=== PATIENT | female | born 1955 | race Caucasian/White ===

== ENCOUNTER 2025-04-11 14:57 | Inpatient (IN) | payer MEDICARE, SELFPAY ==
[2025-04-09 13:21] VITALS: BP 110/71
[2025-04-09 13:46] LABS: % Basophils 0.4 % (0-2); % Eosinophils 0.3 % (0-6); % Immature Granulocytes 0.4 % (0-0.5); % Lymphocytes 14.2 % (20.5-51.1); % Monocytes 9.9 % (1.7-9.3); % Neutrophils 74.8 % (42.2-75.2); Absolute Basophils 0.1 10^3/uL (0-0.2); Absolute Immature Granulocytes 0.1 10^3/uL (0-0.05); Absolute Lymphocytes 1.8 10^3/uL (1.2-3.4); Absolute Monocytes 1.2 10^3/uL (0.1-0.6); Absolute Neutrophils 9.4 10^3/uL (1.4-6.5); Hematocrit 36.6 % (37.0-47.0); Hemoglobin 12.8 g/dL (12.0-16.0); Mean Corpuscular Volume 85.7 fL (81.0-99.0); Mean Platelet Volume 10.2 fL (7.4-10.4); Nucleated Red Blood Cells % 0 %; Platelet Count 270 10^3/uL (130-400); Red Blood Cell Count 4.27 10^6/uL (4.20-5.40); Red Cell Dist. Width 13.2 % (11.5-14.5); White Blood Cell Count 12.6 10^3/uL (4.8-10.8)
[2025-04-09 14:03] LABS: ALT (SGPT) 28 U/L (0-35); AST (SGOT) 32 U/L (14-36); Albumin 3.9 g/dl (3.5-5.0); Alkaline Phosphatase 104 U/L (38-126); Blood Urea Nitrogen 29 mg/dl (7-17); Calcium 10.1 mg/dl (8.4-10.2); Carbon Dioxide 25 mmol/L (22-30); Chloride 105 mmol/L (98-107); Glucose 145 mg/dl (70-99); Potassium 3.8 mmol/L (3.5-5.1); Sodium 140 mmol/L (135-145); Total Bilirubin 0.5 mg/dl (0.2-1.3); Total Protein 6.5 g/dl (6.3-8.2); eGFR > 60.00
[2025-04-09 16:12] VITALS: BP 110/68; BMI 23.0
--- NOTE | 2025-04-09 17:01 | ED.GENMED ---
History of Present Illness
General
Chief Complaint: Gait Dysfunction
Source: patient and family
Time Seen by Provider: 04/09/25 16:41
History of Present Illness
History of Present Illness:
This patient is a 70-year-old female presents emergency department accompanied by her spouse. They state that they just moved here from [place] within the last week. They have a family friend that is a physician at [facility] that referred him to this
emergency department with suggestion for testing including an MRI if available. Patient states that she has always had a feeling of being unbalanced and describes a history of vestibular insufficiency. She was told to attend PT for this which she
did but that overall there is no specific cure for this. She does not take medications for this and states that the only medication she takes besides supplements are vaginal estrogen suppositories. Both her and her state that since Wednesday
she has had increasing imbalance and in fact is stumbling and this is gotten significantly worse in the last 48 hours or so. states that she typically shuffles her feet and is somewhat imbalanced but now she is incredibly unbalanced. This
morning for example at around 8 AM he found her on the floor and she noted that she had 'slid out of bed'. She crawled to the bathroom, sat on the toilet but needed assistance to get off the toilet. She has had some cognitive issues at baseline
but this is also noted to be increased as of Wednesday. states that her symptoms seem to be worse in the evening. There is no history of double vision or blurry vision, slurred speech, chest pain, dyspnea, headache, dizziness, abdominal pain,
back pain, neck pain, nausea, vomiting. There is a slight decrease in her appetite.
Past History
Past History
ED Past Medical History: Other (Vestibular insufficiency)
ED Past Surgical History: Orthopedic
Social History
Tobacco: Non-smoker
Alcohol: None
Drug: None
Personal:
Living: with family
Phy Exam
Physical Exam
Physical Exam:
GENERAL: Alert , in no apparent distress
EYE: pupils equal and reactive, EOMI, no nystagmus, no photophobia
NECK: Supple, no significant adenopathy.
ENT: o/p clr, mmm.
CARDIAC: Regular rate and rhythm .
LUNGS: Clear breath sounds bilaterally, no acute respiratory distress, no wheezes/rales/rhonchi
ABDOMEN: Soft, without focal tenderness, no r/g, no cvat
NEUROLOGICAL: Alert and oriented, right lower extremity weakness 4 out of 5, 2+ patellar reflexes bilaterally, sensation intact throughout, iddsqs-ca-yful normal 2 through 12. Patient noted to be slightly dragging her right lower extremity with
walk. Negative Romberg
SKIN: Warm and dry, skin intact.
MUSCULOSKELETAL: No edema, well perfused.
PSYCH: Normal and appropriate interaction.
Course
Orders/Labs/Results
Orders:
Orders
04/09/25 13:33
Complete Blood Count/With Diff Urgent
Comprehensive Metabolic Panel Urgent
04/09/25 Dinner
Regular
At Your Request: Limited Participation
Does patient need a safe tray?: No
04/09/25 16:59
CT Head W/o Iv Contrast Urgent
Comment:
Reason For Exam: gait dysfunction
04/09/25 17:19
Urinalysis Reflex To Culture Urgent
Date Specimen was Collected: 04/09/25
Time Specimen was Collected: 17:18
Urine Microscopic Reflex Cult Urgent
Urine Culture Urgent
BERNA Source: U
Specimen Description:
Date Specimen was Collected: 04/09/25
Time Specimen was Collected: 17:18
04/09/25 20:25
CefTRIAXone [Rocephin] 1,000 mg IV NOW STA
04/09/25 21:16
Admit/Transfer Patient As Directed
Co-Sign Provider:
Level of Care: Observation services
Assign to:: Medical/Surgical
Physician / Group: Addis
Diagnosis: UTI
Reason for Hospitalization: complicated UTI
PRN Pain Medication Management As Directed
May give lesser potent ordered pain med per pt: Yes
preference::
Protocol:: Medication orders for pain may be administered in a
manner that supports deferring to patient preference
when the pt is:
- Requesting an ordered lesser potent pain medication.
Least to most potent pain medications are defined
as: acetaminophen < NSAID < tramadol < opioids
(morphine, oxycodone, hydromorphone).
- Requesting a lesser dose of the same medication IF
ORDERED.
- Requesting a less intrusive route of administration
if both routes are prescribed by the provider (PO <
IV).
04/09/25 21:17
Code Status As Directed
Resuscitation Status: Full Code
04/09/25 22:00
Flush (0.9% Sodium Chloride) [Flush (Nss)] See Dose Instructions IV PER PROTOCOL
04/09/25 22:57
Acetaminophen [Tylenol] 650 mg PO Q4HPRN PRN
Bisacodyl [Dulcolax] 10 mg RECTAL [id number] PRN
Docusate W/Senna [Senokot-S] 1 tablet PO BIDPRN PRN
Ondansetron Injectable [Zofran] 4 mg IV Q6HPRN PRN
Polyethylene Glycol Powder [Miralax] 17 grams PO DAILYPRN PRN
bromfenac 1 drop RIGHT EYE DAILYPRN PRN
04/09/25 22:57
WOUND/OSTOMY CONSULT Routine
Reason for Consult: sebaceous cyst drainage, dressing recommendations
Wound Culture [Wound/Abscess/Other Culture] Routine
BERNA Source: Shoulder
Specimen Description: Left
Activity As Directed
Activity Level: With Assistance
Orthostatic Vital Signs As Directed
Orthostatic VS Frequency: Daily
Vital Signs As Directed
Frequency: Per unit guidelines
Pulse Ox/spot Check [RESP] Routine
Quantity: 1
Pt Eval And Treat Routine
Activity Level: With Assistance
DX Deep Vein Thrombosis Video Routine
04/09/25 23:22
Pt Screening Request from [facility] Routine
04/10/25 06:12
Basic Metabolic Panel IN AM
Complete Blood Count/No Diff IN AM
Free T4 Routine
Comment: ADD
Magnesium IN AM
TSH IN AM
Vitamin B12 IN AM
04/10/25 08:41
Warm Compress [Heat Application] As Directed
Apply warm compress to (location):: L shoulder
Compress Frequency:: Intermittent q4h
Duration of Application: No longer than 20 minutes
Comment: while patient awake.
04/10/25 09:51
OT Consult [Ot Eval And Treat] Routine
Treatment: Recommended by PT/ Await MD signature
04/10/25 09:53
Add On- LAB Routine
Tests Added?: free T4
04/10/25 10:19
SURGICAL CONSULT Routine
Consulting Provider: Krishna Foster
Was physician already notified: Yes
04/10/25 10:51
Lidocaine 1%/Epinephrine [Xylocaine 1% with Epinephrine] 20 ml INFIL ONCE ONE
04/10/25 11:30
Wound Care As Directed
Location of Wound: LEFT postrior shoulder
Treatment of Wound: Pack with WTD gauze and cover with dry gauze and tape daily
04/10/25 11:33
Case Management Consult ONCE
Case Management Consult: VN/Home Care
04/10/25 18:00
Enoxaparin Sodium [Lovenox] 40 mg SC QPM
04/10/25 20:00
CefTRIAXone [Rocephin] 1,000 mg IV Q24H
Sterile Water [Sterile Water For Injection] 10 ml IV Q24H
04/11/25 09:06
Case Management Consult ONCE
Case Management Consult: VN/Home Care
Abnormal Lab Results
04/09/25 04/09/25 04/10/25
13:33 17:19 06:12
WBC 12.6 H 10^3/uL 11.2 H 10^3/uL
(4.8-10.8) (4.8-10.8)
RBC 3.56 L 10^6/uL
(4.20-5.40)
Hgb 10.8 L g/dL
(12.0-16.0)
Hct 36.6 L % 30.8 L %
(37.0-47.0) (37.0-47.0)
Abs Immat Gran (auto) 0.1 H 10^3/uL
(0-0.05)
Absolute Neuts (auto) 9.4 H 10^3/uL
(1.4-6.5)
Absolute Monos (auto) 1.2 H 10^3/uL
(0.1-0.6)
Lymphocytes % 14.2 L %
(20.5-51.1)
Monocytes % 9.9 H %
(1.7-9.3)
Chloride 110 H mmol/L
(98-107)
BUN 29 H mg/dl 24 H mg/dl
(7-17) (7-17)
Glucose 145 H mg/dl 121 H mg/dl
(70-99) (70-99)
Vitamin B12 > 1000 H pg/ml
(239-931)
TSH 0.09 L uIU/ml
(0.47-4.68)
Ur Occult Blood Reflex 3+ A
(Negative)
Urine Nitrite (Reflex) Positive A
(Negative)
Leukocyte Esterase Rfl 3+ A
(Negative)
Urine RBC 7-10 A /HPF
(0-2)
Urine WBC (Reflex) 11-15 A /HPF
(0-5)
Urine Bacteria (Reflex) Many A
(Negative)
Urine Albumin (Reflex) 2+ A
(Neg - Trace)
04/10/25 06:12
04/10/25 06:12
Vital Signs
Initial and Last Documented VS:
Initial Vital Signs
Temp Pulse Resp BP Pulse Ox
98.2 F 89 16 110/71 98
04/09/25 13:21 04/09/25 13:21 04/09/25 13:21 04/09/25 13:21 04/09/25 13:21
Last Documented Vital Signs
Temp Pulse Resp BP Pulse Ox
97.4 F 72 18 113/67 96
04/12/25 07:30 04/12/25 07:30 04/12/25 07:30 04/12/25 07:30 04/12/25 07:30
Update Note
Update Note:
Patient presents to the Emergency Department with _gait insufficiency
Number and Complexity of Problems Addressed at the Encounter
� Chronic conditions affecting care:
� Acute Exacerbation and/or Progression of Chronic Illness:
� Differential Diagnosis includes: But not limited to vestibular infarct, NPH, central vertigo, peripheral vertigo, etc. etc.
Amount and/or Complexity of Data to be Reviewed and Analyzed
� I performed an independent evaluation of and my interpretation is:
EKG:
CT:
Xrays:
Laboratory Studies:mild leukocytosis, u/a suggestive of uti
Other:
� Review of other/old records reveals: Has been presented a MRI report from March 2024 that shows mild white matter changes that are nonspecific close most likely rec present small vessel ischemic disease no evidence of acute
ischemic injury. The use volume loss disproportionate ventriculomegaly could reflect more pronounced central volume loss or NPH medical setting.
� Clinical information was obtained by an independent historian: at bedside
� Prescriptions/Medications Considered but not given:
� Further testing considered but not performed:
Risk of Complications and/or Morbidity or Mortality of Patient Management
� Social determinants of health affecting care:
� Discussion with other providers (PCP, Hospitalists, Consultants, etc):
� Escalation of care including admission/observation vs risk of discharge considered: 821pm Pt having increasing difficulty with gait as noted by and RN naya. reports this is c/w last few days when sxs worse
later in day. Of note, pt having episodes of incontinence and urgency, not specifically dysuria. No flank pain/fever. Ct report still pending, no bleed noted by me, however overall strong suspection for NPH given her sxs and CT. Recommend
admission, iv abx, neuro c/s in am, t/c LP for further diagnostic w/u in AM. All d/w family and pt. Although amoxil listed as allergy, she states that she has since had amoxil (dental) without rxn and therefore it has been removed with her primary
records as a true allergy.
ED Attending Note
-
Portions of this chart may have been created with voice recognition software.� Occasional wrong word or��sound alike� substitutions may have occurred due to the inherent limitations of voice recognition software.
Discharge Plan
Departure
Patient Disposition: Admit
Date of Disposition: 04/09/25
Time of Disposition: 20:25
Admit to: Telemetry
Presentation/result/management discussed w/ accepting MD/DO: Hospitalist
Condition: Fair
Discharge Problem:
Acute UTI, Ambulatory dysfunction
Interventions
Interventions:
*Risk Screen - Suicide Last Done: 04/09/25 23:23
*General Assessment Last Done: 04/09/25 16:13
*Neglect/Abuse Screening Last Done: 04/09/25 13:21
*ED COVID-19 Vaccine History Last Done: 04/09/25 23:23
*Nursing Disposition Last Done: 04/09/25 22:52
ED- Neurological Assessment Last Done: 04/09/25 16:15
ED-Musculoskeletal Assessment Last Done: 04/09/25 16:17
Discharge Date and Time
Discharge Date/Time: 04/09/25 22:54
[2025-04-09 18:19] LABS: Urine Albumin 2+ (Neg - Trace); Urine Bilirubin Negative (Negative); Urine Glucose Negative (Negative); Urine Ketone Negative (Negative); Urine Leukocyte 3+ (Negative); Urine Nitrite Positive (Negative); Urine Occult Blood 3+ (Negative); Urine Urobilinogen Negative (Neg - 1+)
[2025-04-09 18:21] LABS: Urine Color Yellow
[2025-04-09 18:22] LABS: Urine Character Slightly Cloudy (Clear)
[2025-04-09 18:32] LABS: Urine Squamous Cell 0-2 /LPF (Few)
[2025-04-09 18:33] LABS: Urine Bacteria Many (Negative)
[2025-04-09 20:26] VITALS: BP 118/64
--- NOTE | 2025-04-09 20:39 | HPS.HSE ---
Family Physician
-
Family Physician: NOT KNOW UNKNOWN - PT DOES
Chief Complaint
-
Stumbling
History of Present Illness
This is a 70-year-old female with past medical history of chronic vestibular insufficiency and baseline balance issues who presents to the emergency department with complaint of worsening balance over the last few days.
Patient recently moved to [place] from [place]. She was referred to the emergency department for possible MRI testing by a physician friend. In the past she had been told to attend PT for vestibular insufficiency and feeling of being unbalanced.
She notes that there is no specific care for this. She does not take any medications. Patient reported that she has had gait difficulties for years. She also has intermittent memory loss and confusion. She has had a history of incontinence and
has been evaluated by urologist in the past. She has had suggestion of pelvic floor dysfunction as well. She denies tremors although spouse stated that she had an episode of tremor this morning. She denies any stiffness. She denies any recent
rash. She denies orthostatic dizziness. She denies any numbness or tingling. She denies any focal weakness. There has been no double vision, blurry vision, slurred speech, facial droop, numbness or tingling or weakness in her upper or lower
extremities. She denies having any shortness of breath, cough fevers chills or chest pain. She denies any nausea or vomiting. There is been no melena or hematochezia.
She denies any prior history of CVA. She denies any prior history of heart disease or stroke arrhythmias.
She denies tremors at baseline. She denies any stiffness. Spouse reported that today she did appear to have tremors just standing up. She denies any lightheadedness or orthostatic symptoms.
Patient denies history of urinary tract infection.
Since Wednesday she is has increased stumbling. She typically shuffles but now she is incredibly imbalanced. She slid out of bed and was found on the floor this morning. She crawled to the bathroom sat on the toilet but needed assistance to get off
the toilet. Known cognitive issues at baseline but worsened since Wednesday.
In the emergency department the patient was afebrile. Blood pressure was 110/60 with a pulse of 77 and she was satting 98% on room air.
UA was markedly positive.
CT of the head was negative.
White count of 12.6. Hemoglobin and platelet counts were normal. Electrolytes were all normal. BUN/creatinine were stable. Glucose was normal.
Medical History
Past Medical History
Past Medical History: Reports Other
Additional Past Medical History:
Vestibular insufficiency
Lower urinary tract symptoms
Past Surgical History: Reports None
Social History
Tobacco: Non-smoker
Alcohol: None
Drug: None
Personal:
Living: With Family
Employment: Retired
Family History
Family History: Not pertinent
Allergies / Home Medications
Allergies reflects when Allergies were last updated in [employer].
Home Medications with original date entered in [employer]
Allergy/Medication List:
Allergies
Allergy/AdvReac Type Severity Reaction Status Date / Time
amoxicillin Allergy Unknown Verified 04/09/25 13:26
No home medications
Review of Systems
-
Constitutional: Reports No Symptoms
EENT: Reports No Symptoms
Respiratory: Reports No Symptoms
Cardiac: Reports No Symptoms
Abdomen/GI: Reports No Symptoms
: Reports No Symptoms
Musculoskeletal: Reports No Symptoms
Skin: Reports No Symptoms
Neurological: Reports See HPI, Dizzy and Weakness; Denies Headache or Numbness
Endocrine: Reports No Symptoms
Hematologic/Lymphatic: Reports No Symptoms
Psych: Reports No Symptoms
Physical Exam
Vital Signs
Vital Signs
Temp Pulse Resp BP Pulse Ox
98.2 F 77 18 110/68 95
04/09/25 13:21 04/09/25 16:12 04/09/25 16:12 04/09/25 16:12 04/09/25 16:12
Physical Exam
General: Well Developed, Well Nourished and No Apparent Distress
HEENT: NormoCephalic, Moist mucous membranes and Atraumatic
Respiratory: Clear
Cardiac: S1/S2 and Regular Rhythm; No Murmur or Rub
GI: Soft, Non Tender, Non Distended and Normal Bowel Sounds; No Organomegaly
Rectal: Deferred by Provider
Musculoskeletal: No Clubbing, No Cyanosis and No Edema
Skin: No Rash
Neuro: Nonfocal/grossly intact
Laboratory Results
-
04/09/25 13:33
04/09/25 13:33
Laboratory Results
Total Bilirubin 0.5 mg/dl (0.2-1.3) 04/09/25 13:33
AST 32 U/L (14-36) 04/09/25 13:33
ALT 28 U/L (0-35) 04/09/25 13:33
Alkaline Phosphatase 104 U/L (38-126) 04/09/25 13:33
Data Reviewed
-
CT Scan: Report Reviewed by me
MRI: Report Reviewed by me
Lab Data: Labs Reviewed by me
Old Records: Reviewed
Impression/Plan
-
IMPRESSION:
70-year-old female with history of incontinence, normally loss and confusion, gait difficulty who presents to the emergency department with marked worsening of her symptoms over the last 3 days. She reports of weakness, increased confusion and
worsening gait. Found to have a urinary tract infection in the ED. Denies flank pain fevers or chills. Denies any history of urinary tract infections. Denies history of kidney stones.
Has been no recent falls. CT of the head is negative.
Given history of gait difficulties she did have an MRI a year ago that showed nonspecific mild white matter changes representing small vessel ischemic disease. There was also diffuse parenchymal loss with disproportionate ventriculomegaly which
could reflect a more pronounced central volume loss or normal pressure hydrocephalus.
Denies any tremors. Denies any stiffness.
PLAN:
Urinary tract infection - Worsening confusion, weakness and positive u/a without dysuria. No signs of sepsis
- admit to med/surg
- urine cultures sent
- will check blood cx if febrile
- IV ceftriaxone
Gait difficulty - Underlying shufflying gait with prior mri concerning for out of proportion ventriculomegally
- possible NPH, neuro consult
- check folate/b12/tsh
- treat uti
- PT eval
- hold off on repeat imaging pending neuro
Sebaceous cyst - left posterior shoulder cyst. Has intermittent drainage in the past. Now draining.
- send cultures
- ostomy consult
DVT PPX - lovenox sq
code status - Full Code
[2025-04-09] MEDS: ROCEPHIN 1000 MG IV (20:54)
[2025-04-09 21:00] VITALS: BP 101/64
[2025-04-09 22:55] VITALS: BP 102/59; BP 114/62; PULSE 70; PULSE 73; BMI 23.0
--- NOTE | 2025-04-10 06:30 | PTCARENOTE ---
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 Pt placed on bed alarm for safety.Plan of care continued.Call mcgowan in reach.
[2025-04-10 06:53] LABS: Hematocrit 30.8 % (37.0-47.0); Hemoglobin 10.8 g/dL (12.0-16.0); Mean Corp Hgb Conc. 35.1 g/dL (33.0-37.0); Mean Corpuscular Hgb 30.3 pg (27.0-31.0); Mean Corpuscular Volume 86.5 fL (81.0-99.0); Platelet Count 248 10^3/uL (130-400); Red Blood Cell Count 3.56 10^6/uL (4.20-5.40); Red Cell Dist. Width 13.2 % (11.5-14.5); White Blood Cell Count 11.2 10^3/uL (4.8-10.8)
[2025-04-10 07:27] LABS: Blood Urea Nitrogen 24 mg/dl (7-17); Calcium 9.4 mg/dl (8.4-10.2); Carbon Dioxide 27 mmol/L (22-30); Chloride 110 mmol/L (98-107); Estimated Creatinine Clearance 76 ml/min; Glucose 121 mg/dl (70-99); Potassium 3.7 mmol/L (3.5-5.1); Sodium 142 mmol/L (135-145); eGFR > 60.00
[2025-04-10 07:30] VITALS: BP 116/68; BP 116/73; BP 98/54; PULSE 60; PULSE 83; PULSE 89
[2025-04-10 07:59] LABS: TSH 0.09 uIU/ml (0.47-4.68)
[2025-04-10 08:18] LABS: Vitamin B12 > 1000 pg/ml (239-931)
--- NOTE | 2025-04-10 08:44 | WOUNDNOTE ---
[facility] RN note: Patient admitted with UTI. Patient lives with her .
See H&P for complete history.
PMH: vestibular insufficiency, gait dysfunction, incontinent, CVA.
Wound Location and type/assessment: Patient admitted with: L shoulder cyst (suspect sebaceous cyst). She stated it has been coming and going for many years and that she has seen a real estate management specialist for it before. Cyst raised with blanched skin in
center and mild red on outer part of cyst. Cyst tender and non fluctuant. No drainage.
Appetite: good.
Pressure redistribution devices in place: [employer] Accumax. Patient can move self in bed and she stood during sacral skin assessment. Patient has a cane with her.
Plan: Warm compress applied to L shoulder x 15 minutes. Protective gauze pad changed. Air chair cushion given. Instructed patient pressure injury prevention measures.
Updated Dr. Louis who approved warm compresses. Defer to hospitalist if general surgeon evaluation indicated. Discussed with RN Scooter.
Updated care plan and will follow peripherally as needed.
--- NOTE | 2025-04-10 10:20 | W.PN.HOSP.TC ---
Today's Communication/Plan
-
Continue antibiotics
PT/OT
General Surgery consult
Assessment / Plan
Assessment / Plan
Gen-AAOx3, NAD
HEENT-NC, AT, anicteric, clear oral mm
Neck-supple
CV-reg, no M, +S1/S2
Lungs-clear B/L
Abd-soft, NT, ND
Ext-no edema
Musculoskeletal-no cyanosis, clubbing
Skin-warm and dry
Neuro-grossly non-focal
Psych-calm, cooperative
Gait dysfunction -chronic. Symptoms started a year ago. MRI a year ago done in [place] was suggestive of possible NPH. CT of the head done last night did not show ventriculomegaly. Did see a neurologist in [place] but apparently did not get further
evaluation according to family.
I spoke with neurology service, they recommend outpatient evaluation.
She states that she feels better today. Unclear if UTI is playing a role in her gait dysfunction. PT/OT consulted.
UTI -symptoms of urgency started a few days ago. Urine culture pending. Continue empiric antibiotics.
Left shoulder sebaceous cyst -General Surgery consulted for drainage.
Full code
Anticipated Discharge: Within 24 hours
Subjective/Interval History
-
Date of Service: April 10, 2025
Patient seen and examined. States her strength is better today compared to yesterday.
Objective Data
-
Labs:
Laboratory Results
04/10/25
06:12
WBC 11.2 H
Hgb 10.8 L
Hct 30.8 L
Plt Count 248
Sodium 142
Potassium 3.7
Chloride 110 H
Carbon Dioxide 27
BUN 24 H
Creatinine 0.6
Glucose 121 H
Calcium 9.4
Vital Signs:
Vital Signs
Temp Pulse Resp BP Pulse Ox
97.3 F 60 18 98/54 97
04/10/25 07:30 04/10/25 07:30 04/10/25 07:30 04/10/25 07:30 04/10/25 07:30
Review of Systems
-
History Source: Patient
All other systems: Reviewed and negative
[2025-04-10 10:42] LABS: Free T4 1.66 ng/dl (0.78-2.19)
--- NOTE | 2025-04-10 10:52 | CON.GS ---
Consultation
-
Date/Time Consultation Requested: 04/10/2025
Date/Time Consultation Performed: 04/10/2025
Medical History
-
Chief Complaint: LEFT postrior shoulder soft tissue mass
History of Present Illness:
Patient is a 70 yo F with no pertinent PMH who was admitted to the hospital due to gait instability and concern for a UTI.During the course of her hospitalization she was found to have a LEFT posterior shoulder soft tissue mass. Ms. Gilman states
that this has been present for years. She has intermittent episodes of increased swelling and discomfort ultimately leading to spontaneous drainage and improvement in her symptoms. Currently she states that she is having more discomfort and
swelling. No fevers or chills. No active drainage. She denies any prior drainage procedures or antibiotics. No personal or family history of skin or soft tissue lesions. Of note, she is currently on ceftriaxone for management of the UTI.
Past Medical History
Past Medical History: Other
Past Surgical History: None
Social History
Tobacco: Non-Smoker
Alcohol: None
Drug: None
Personal:
Living: With Family
Employment: Retired
Family History
Family History: Reviewed & Not Pertinent
Allergies / Home Medications
Allergy/AdvReac Type Severity Reaction Status Date / Time
amoxicillin Allergy Unknown Verified 04/09/25 13:26
�Medication �Instructions �Recorded �Confirmed �Type
Fc Cidal 1 cap PO DAILY 04/09/25 04/09/25 History
Lactobac no.2-Bifidobac no.1-S. 1 cap PO DAILY 04/09/25 04/09/25 History
thermo 112.5 billion cell capsule
(Visbiome)
Lidocaine/Baclofen/Nifedipine 1 applic topical DAILYPRN PRN 04/09/25 04/09/25 History
irght knee
Mushroom Complete 1 cap PO DAILY 04/09/25 04/09/25 History
acetylcarnitine 500 mg capsule 500 mg PO DAILY 04/09/25 04/09/25 History
ascorbic acid (vitamin C) 500 mg 1,000 mg PO DAILY 04/09/25 04/09/25 History
tablet
berberine chloride 500 mg capsule 500 mg PO DAILY 04/09/25 04/09/25 History
biotin 10,000 mcg chewable tablet 10,000 mcg PO DAILY 04/09/25 04/09/25 History
(Hair, Skin and Nails (biotin))
bromfenac 0.07 % eye drops 1 drp RIGHT EYE DAILYPRN PRN 04/09/25 04/09/25 History
ocular mirgraines
calcium 166.75 mg-vit D3 166.75 1 tab PO DAILY 04/09/25 04/09/25 History
unit-vit C-vit K2-minerals capsule
(Bone Essentials)
digestive enzymes 1 cap PO AC 04/09/25 04/09/25 History
flaxseed oil 1,000 mg capsule 1,000 mg PO DAILY 04/09/25 04/09/25 History
guaifenesin 400 mg tablet 800 mg PO HSPRN PRN cough 04/09/25 04/09/25 History
magnesium chelate, malate 125 mg PO HS 04/09/25 04/09/25 History
magnesium hydroxide 400 mg/5 mL 2,400 mg PO DAILYPRN PRN 04/09/25 04/09/25 History
oral suspension (Felix Milk of constipation
Magnesia)
naltrexone 4.5 mg capsule 4.5 mg PO HS 04/09/25 04/09/25 History
omega-3 acid ethyl esters 1 gram 2 g PO BID 04/09/25 04/09/25 History
capsule
turmeric 400 mg capsule 400 mg PO DAILY 04/09/25 04/09/25 History
vitamin A 3,000 mcg (10,000 unit) 3,000 mcg PO DAILY 04/09/25 04/09/25 History
capsule
vitamin B complex 1 tab PO DAILY 04/09/25 04/09/25 History
vitamin E 268 mg (400 unit) capsule 268 mg PO DAILY 04/09/25 04/09/25 History
Review of Systems
-
A 10 point review of systems was completed, and was negative except as per HPI.
Physical Exam
Vital Signs
Temp Pulse Resp BP Pulse Ox
97.3 F 60 18 98/54 97
04/10/25 07:30 04/10/25 07:30 04/10/25 07:30 04/10/25 07:30 04/10/25 07:30
04/09/25 04/10/25 04/11/25
06:59 06:59 06:59
Actual Weight 62.766 kg
Body Mass Index (BMI) 23.0
Lab Results
04/10/25 06:12
04/10/25 06:12
WBC 11.2 10^3/uL (4.8-10.8) H 04/10/25 06:12
Hgb 10.8 g/dL (12.0-16.0) L 04/10/25 06:12
Hct 30.8 % (37.0-47.0) L 04/10/25 06:12
Plt Count 248 10^3/uL (130-400) 04/10/25 06:12
Abs Immat Gran (auto) 0.1 10^3/uL (0-0.05) H 04/09/25 13:33
Neutrophils % 74.8 % (42.2-75.2) 04/09/25 13:33
Physical Exam
General: Well Developed, Well Nourished and No Apparent Distress
Respiratory: Non Labored Respirations
Musculoskeletal: Other ( LEFT posterior shoulder with 3 cm area of soft tissue swelling, soft, mild blanching erythema, palpable fluctuance, mildly mobile, no active drainage, minimal tenderness)
Skin: Warm and Dry
Neuro: Nonfocal/Grossly Intact
Data Reviewed
-
Labs: Labs Reviewed by me
Assessment / Plan
-
Patient is a 70 yo F found to have a chronic LEFT posterior shoulder soft tissue mass/abscess during the course of her hospitalization for vestibular and balance issues
Given the chronicity of this lesion, this is likely an infected sebaceous cyst. Differential also includes a primary abscess. The natural history and pathophysiology of this sebaceous cyst was reviewed. Options for management reviewed. Plan for
incision and drainage of a LEFT posterior shoulder abscess. The procedure itself, as well as the risks, benefits, and alternatives was discussed. Specifically, we discussed the risks of bleeding, persistent infection, injury to surrounding
structures, and recurrence. We discussed that if a sebaceous cyst there is a chance of recurrence until the capsule is completely excised. Given the size of the lesion and concern for possible infection no plans for excision at this time. Patient
agrees to proceed with procedure. All questions answered.
-- I&D of LEFT posterior shoulder abscess (see separate note)
-- Local wound care: OK to remove packing tomorrow (04/11), cover with dry gauze as needed for drainage
-- Continue with abx for UTI, no further needs from a GS perspective
-- Please call with any questions or concerns
-- Patient instructed to call the office if recurrence of her cyst
--- NOTE | 2025-04-10 11:33 | W.PN.SURGUPD ---
Surgical Update
Surgical Update
Incision and Drainage of LEFT Posterior Shoulder Abscess
Area was prepped using Betadine. Local anesthetic in the form of 1% Lidocaine (8 cc) was used as a field block. Linear incision made using a #15 blade. Evacuation of approximately 30 cc purulence and sebaceous material. Cavity probed and
superficially debrided with gauze. Wound cleansed with saline. Elipse of skin created to promote continued drainage. Substantially decompressed area. Wound packed with dry gauze and covered with gauze and tape. Patient tolerated procedure well.
Wound care orders placed.
[2025-04-10 15:05] VITALS: BP 108/60; PULSE 62; O2SAT 97
[2025-04-10 15:19] VITALS: BP 108/50
[2025-04-10 15:27] VITALS: BP 108/60; PULSE 62; O2SAT 97
--- NOTE | 2025-04-10 16:42 | CM ---
Alert awake oriented patient who lives with her Julio who lives in one story home with 1 step to enter.She is independent in driving and in all activities of daily living.Offered VN she declined.She uses a cane and CPAP.SHARIFA explained and copy
given . Pt did not sogn SHARIFA letter.
Never had VN/SNF
Pharmacy [facility] recent moved here
PCP recently moved here
PLAN Home no needs
[2025-04-10] MEDS: STERILE WATER FOR INJECTION 10 ML IV (20:58)
[2025-04-10] MEDS: ROCEPHIN 1000 MG IV (20:58)
[2025-04-10] MEDS: FLUSH (NSS) 1 FLUSH IV (21:02)
[2025-04-10 23:45] VITALS: BP 108/61
[2025-04-11 07:57] VITALS: BP 103/66; BP 107/69; BP 96/56; PULSE 59; PULSE 69; PULSE 72
--- NOTE | 2025-04-11 09:05 | W.PN.HOSP.TC ---
Today's Communication/Plan
-
Follow-up urine culture
Assessment / Plan
Assessment / Plan
Gen-AAOx3, NAD
HEENT-NC, AT, anicteric, clear oral mm
Neck-supple
CV-reg, no M, +S1/S2
Lungs-clear B/L
Abd-soft, NT, ND
Ext-no edema
Musculoskeletal-no cyanosis, clubbing
Skin-warm and dry
Neuro-grossly non-focal
Psych-calm, cooperative
Gait dysfunction -chronic. Symptoms started a year ago. MRI a year ago done in [place] was suggestive of possible NPH. CT of the head done last night did not show ventriculomegaly. Did see a neurologist in [place] but apparently did not get further
evaluation according to family.
I spoke with neurology service, they recommend outpatient evaluation.
Weakness markedly improved with antibiotics, suspect UTI contributing factor to her weakness.
UTI -symptoms of urgency started a few days ago. Urine culture pending. Continue empiric antibiotics.
Left shoulder sebaceous cyst/abscess -General Surgery drained the abscess. Packing in place. Set up visiting nurse to assist with wound care on discharge.
Low TSH -Free T4 normal. Suspect sick euthyroid syndrome. Can recheck as an outpatient with PCP.
Normocytic anemia -possible hemodilution from IV fluid administration. Follow-up as an outpatient.
Full code
Dispo - anticipate discharge home with VNA and PT. Patient not interested in SNF. Follow-up as an outpatient with PCP and neurology.
Anticipated Discharge: Within 24 hours
Subjective/Interval History
-
Date of Service: April 11, 2025
Patient seen and examined. She states she feels 100% stronger today. No complaints.
Objective Data
-
Vital Signs:
Vital Signs
Temp Pulse Resp BP Pulse Ox
97.6 F 59 14 96/56 97
04/11/25 07:57 04/11/25 07:57 04/11/25 07:57 04/11/25 07:57 04/11/25 07:57
I&O
04/10/25 04/11/25 04/12/25
06:59 06:59 06:59
Intake Total 1200 / 1200
Balance 1200 / 1200
Review of Systems
-
History Source: Patient
All other systems: Reviewed and negative
--- NOTE | 2025-04-11 11:56 | WOUNDNOTE ---
[facility] RN note: Patient s/p bedside I+D L shoulder cyst yesterday by surgeon. Changed packing using 1/4 inch gauze packing strip moistened with saline. Instructed patient's wound care and hand hygiene with wound care. Wound supplies given.
Patient to follow up with her primary care physician when discharged. Instructed patient signs and symptoms of wound infection to report to physician. Will sign off. Nursing to continue daily wound care during hospital stay.
[2025-04-11 15:13] VITALS: BP 119/63
--- NOTE | 2025-04-11 15:19 | VNURNOTE ---
Home Health Liaison met with patient at bedside to discuss [facility] nurse/therapy, visits, schedule and homebound status. Spouse Julio was on speaker phone. Patient is agreeable and understands that visits at home will be 2-3 x per week to assess and
teach medical management.
Patient is aware that [facility] will contact them for start of care in 1-2 days after discharge from .
[facility] referral completed in [facility].
[2025-04-11 15:28] VITALS: PULSE 62; O2SAT 98
--- NOTE | 2025-04-11 16:44 | CM ---
Pt recently moved to [facility].
Pharmacy at [facility] placed in summary
Offered VN she requested [facility]ella Liaison [facility] notified
PCP Dr Grupo Durán
PLAN Home with [facility]
[2025-04-11] MEDS: STERILE WATER FOR INJECTION 10 ML IV (21:31)
[2025-04-11] MEDS: ROCEPHIN 1000 MG IV (21:32)
[2025-04-11] MEDS: BENADRYL 25 MG IV (21:32)
[2025-04-11 23:45] VITALS: BP 120/72
[2025-04-12 07:30] VITALS: BP 113/67
[2025-04-12] MEDS: HYDROCORTISONE 1% CREAM 1 APPLIC TOPICAL (07:33)
--- NOTE | 2025-04-12 09:57 | CM ---
Addendum entered by Tess Leonard 04/12/25 10:25:
Patient with left shoulder cyst/abscess seen by surgery packing in place.
Plan; Home with [facility] and Outpatient PT/OT in future.
Original Note:
Chart reviewed and patient was seen by PT/OT today and plan is for outpatient PT/OT, patient's spouse is aware of plan and they plan to pick a therapist close to [place]. Patient will need a script for outpatient PT/OT.
Plan; Home with spouse and outpatient PT/OT.
--- NOTE | 2025-04-12 10:16 | W.PN.HOSP.TC ---
Today's Communication/Plan
-
Chest x-ray/rib x-ray
Discharge
Assessment / Plan
Assessment / Plan
Gen-AAOx3, NAD
HEENT-NC, AT, anicteric, clear oral mm
Neck-supple
CV-reg, no M, +S1/S2
Lungs-clear B/L
Abd-soft, NT, ND
Ext-no edema
Musculoskeletal-no cyanosis, clubbing
Skin-warm and dry, mild rash under her left shoulder
Neuro-grossly non-focal
Psych-calm, cooperative
Gait dysfunction -chronic. Symptoms started a year ago. MRI a year ago done in [place] was suggestive of possible NPH. CT of the head done last night did not show ventriculomegaly. Did see a neurologist in [place] but apparently did not get further
evaluation according to family.
I spoke with neurology service, they recommend outpatient evaluation.
Weakness markedly improved with antibiotics, suspect UTI contributing factor to her weakness.
E. coli UTI -improving symptoms on antibiotics. Can discharge on course of Bactrim. Sensitivity noted.
Left lateral rib pain - denies fall or trauma. Somewhat pleuritic in nature. Can check chest x-ray and rib x-ray. Patient agreeable. No obvious rash to suggest herpes zoster.
She does have a rash under the left shoulder from surgical tape, likely contact dermatitis. Topical hydrocortisone ordered.
Left shoulder sebaceous cyst/abscess -General Surgery drained the abscess. Packing in place. Set up visiting nurse to assist with wound care on discharge.
Low TSH -Free T4 normal. Suspect sick euthyroid syndrome. Can recheck as an outpatient with PCP.
Normocytic anemia -possible hemodilution from IV fluid administration. Follow-up as an outpatient.
Full code
Dispo -if chest and rib x-ray negative then medically stable for discharge home today with VN, outpatient PT/OT. Follow-up with PCP and neurology. Discussed with .
32 minutes spent in discharge process.
Anticipated Discharge: Today
Subjective/Interval History
-
Date of Service: April 12, 2025
Patient seen and examined. Eager to go home. Does complain of left lateral rib pain. Mildly pleuritic.
Objective Data
-
Vital Signs:
Vital Signs
Temp Pulse Resp BP Pulse Ox
97.4 F 72 18 113/67 96
04/12/25 07:30 04/12/25 07:30 04/12/25 07:30 04/12/25 07:30 04/12/25 07:30
I&O
04/11/25 04/12/25 04/13/25
06:59 06:59 06:59
Intake Total 1200 / 1200 1520 / 1520
Balance 1200 / 1200 1520 / 1520
Review of Systems
-
History Source: Patient
All other systems: Reviewed and negative
[2025-04-12 11:45] VITALS: BP 104/66
--- NOTE | 2025-04-12 12:19 | W.DS.TRANS ---
DC Summary - Senior Advisor
-
Discharge Instructions:
Discharge Diagnosis/Procedures Ambulatory dysfunction, UTI, left shoulder
abscess
Diet Regular
Activity As tolerated
Driving Restrictions As prior to admission
Bathing Restrictions None
Blood Work TSH, free T4 in 1 month with your primary care
doctor
Other Services VN,PT
Wound Care Pack posterior shoulder wound with wet-to-dry
gauze and cover with dry gauze and tape daily.
Shower and clean area daily.
Instructions:
Stand-Alone Forms:
Changes to Home Medications: No
Discharge Medications:
DC Medications w/original date entered in [employer]
Fc Cidal 1 cap PO DAILY 04/09/25
Lactobac no.2-Bifidobac no.1-S. thermo 112.5 billion cell capsule (Visbiome) 1 cap PO DAILY 04/09/25
Lidocaine/Baclofen/Nifedipine 1 applic topical DAILYPRN PRN irght knee 04/09/25
Mushroom Complete 1 cap PO DAILY 04/09/25
acetylcarnitine 500 mg capsule 500 mg PO DAILY 04/09/25
ascorbic acid (vitamin C) 500 mg tablet 1,000 mg PO DAILY 04/09/25
berberine chloride 500 mg capsule 500 mg PO DAILY 04/09/25
biotin 10,000 mcg chewable tablet (Hair, Skin and Nails (biotin)) 10,000 mcg PO DAILY 04/09/25
bromfenac 0.07 % eye drops 1 drp RIGHT EYE DAILYPRN PRN ocular mirgraines 04/09/25
calcium 166.75 mg-vit D3 166.75 unit-vit C-vit K2-minerals capsule (Bone Essentials) 1 tab PO DAILY 04/09/25
digestive enzymes 1 cap PO AC 04/09/25
flaxseed oil 1,000 mg capsule 1,000 mg PO DAILY 04/09/25
guaifenesin 400 mg tablet 800 mg PO HSPRN PRN cough 04/09/25
magnesium chelate, malate 125 mg PO HS 04/09/25
magnesium hydroxide 400 mg/5 mL oral suspension (Felix Milk of Magnesia) 2,400 mg PO DAILYPRN PRN constipation 04/09/25
naltrexone 4.5 mg capsule 4.5 mg PO HS 04/09/25
omega-3 acid ethyl esters 1 gram capsule 2 g PO BID 04/09/25
turmeric 400 mg capsule 400 mg PO DAILY 04/09/25
vitamin A 3,000 mcg (10,000 unit) capsule 3,000 mcg PO DAILY 04/09/25
vitamin B complex 1 tab PO DAILY 04/09/25
vitamin E 268 mg (400 unit) capsule 268 mg PO DAILY 04/09/25
hydrocortisone 2.5 % topical cream 1 applic topical BID #20 grams 04/12/25
sulfamethoxazole 800 mg-trimethoprim 160 mg tablet (Bactrim DS) 1 tab PO BID #8 tabs 04/12/25
Home Medication Changes
Pending Results: No
== END 2025-04-12 14:13 | disposition home or self-care (01) | DRG 603 ==
LOC: 4 EAST ACU 14:57
PROVIDERS: Emergency Medicine; ADMITTING PHYSICIAN Internal Medicine; ATTENDING PHYSICIAN Hospitalist; CONSULT PHYSICIAN Surgery; EMERGENCY PHYSICIAN Emergency Medicine
PROC: 0H9CXZZ Drainage of Left Upper Arm Skin, External Approach (ICD-10-PCS; 2025-04-10)
DX: L02.414 Cutaneous abscess of left upper limb (principal); N39.0 Urinary tract infection, site not specified; G93.89 Other specified disorders of brain; Z88.0 Allergy status to penicillin
CPT/HCPCS: 70450; 71101; 80048; 80053; 81003; 81015; 82607; 83735; 84439; 84443; 85025; 85027; 87077; 87086; 87186; 96374; 97116; 97163; 97167; 97530; 97535; 99285

== ENCOUNTER 2025-04-27 07:27 | Outpatient (RCR) | payer MEDICARE, SELFPAY | END 2025-04-27 23:59 | disposition home or self-care (01) | LOC: RPT 07:27 | PROVIDERS: ATTENDING PHYSICIAN Family Medicine | DX: R26.89 Other abnormalities of gait and mobility (principal); Z73.6 Limitation of activities due to disability | CPT/HCPCS: 97112; 97162 ==